=== PATIENT | female | born 1985 ===

== ENCOUNTER 2022-05-24 13:35 | Outpatient (CLI) | payer OTHER | END 2022-05-24 16:47 | disposition home or self-care (01) | LOC: PRENATAL 13:35 | PROVIDERS: ATTEND Obstetrics & Gynecology Maternal & Fetal Medicine | DX: O26.849 Uterine size-date discrepancy, unspecified trimester (principal); O26.879 Cervical shortening, unspecified trimester; Z36.0 Encounter for antenatal screening for chromosomal anomalies; O09.519 Supervision of elderly primigravida, unspecified trimester; O34.10 Maternal care for benign tumor of corpus uteri, unspecified trimester; Z3A.29 29 weeks gestation of pregnancy ==